=== PATIENT | female | born 1985 | race Caucasian/White ===

== ENCOUNTER 2021-01-24 13:45 | Emergency (ER) | payer OTHER ==
[2021-01-24] MEDS ORDERED: Sodium Chloride 0.9% 1,000 ML IV ONE (15:35)
--- NOTE | 2021-01-24 15:52 | PCM.SN.2 ---
- Free Text/Narrative Note: ED none 1547 sinus rhythm heart rate [address] elevation in inferior leads and laterally consistent with early repole no prior for comparison impression normal EKG
--- NOTE | 2021-01-24 17:16 | PCM.SN.2 ---
- Free Text/Narrative Note: EG done at 1547 shows a sinus rhythm with a heart rate 74 and axis 78. URS is normal impression normal EKG
[2021-01-24 17:28] LABS: BLOOD UREA NITROGEN,BUN 16 mg/dL (7.0-18.0); CARBON DIOXIDE,CO2 23.1 mmol/L (21.0-32.0); CHLORIDE,CL 105 mmol/L (98-107); GLUCOSE RANDOM 81 mg/dL (74-106); LIPASE 129 U/L (73-393); POTASSIUM,K 3.5 mmol/L (3.5-5.1); SODIUM,NA 139 mmol/L (136-145)
--- NOTE | 2021-01-24 18:51 | CR ---
INDICATION: Syncope TECHNIQUE: Chest radiograph 1 view COMPARISON: None FINDINGS: Mediastinum: The mediastinum is normal in appearance. The heart silhouette is normal in size and morphology. Lung: There is a 5 mm nodular density in the left midlung zone. No sign of pleural effusion seen. No pneumothorax is identified. Bone and Soft tissue: Unremarkable for age. IMPRESSION: 1. There is a 5 mm nodular density in the left midlung zone. This may represent a granuloma. Comparison with any prior outside imaging is recommended. If these cannot be obtained, follow up chest radiograph in 3 months is warranted to document stability. Dictated by Federico Cheema MD @ 01/24/2021 6:49:14 PM Dictated by: Federico Cheema MD @ 01/24/2021 18:49:16 (Electronically Signed)
--- NOTE | 2021-01-24 18:57 | CT ---
INDICATION: Dizziness and syncope TECHNIQUE: CT head without contrast. COMPARISON: None. FINDINGS: CSF spaces: Within normal limits for age. Brain parenchyma: The lopez-white differentiation is normal. No sign of mass, hemorrhage, or midline shift. Skull base and calvarium: The visualized paranasal sinuses and mastoid air cells demonstrate no acute or significant findings. The visualized orbits are grossly unremarkable. No skull fractures. IMPRESSION: Unremarkable noncontrast head CT. Please note that all CT scans at this facility use dose modulation, iterative reconstruction, and/or weight-based dosing when appropriate to reduce radiation dose to as low as reasonably achievable. Dictated by Clint Ruiz MD @ Jan 24 2021 6:53PM Signed by Dr. Clint Ruiz @ Jan 24 2021 6:55PM
--- NOTE | 2021-01-24 19:23 | EDM.PDOC ---
ED [facility] GENERAL MEDICAL PROBLEM - General Chief Complaint: General Stated Complaint: GENERAL Time Seen by Provider: 01/24/21 13:47 Source of Information: Reports: Patient History Limitations: Reports: No Limitations - History of Present Illness INITIAL COMMENTS - FREE TEXT/NARRATIVE: HISTORY AND PHYSICAL: History of present illness: Patient is a poor historian so HPI is limited to this Patient is a 35-year-old female who presents to the ED today with concern of various multiple complaints that she has a difficult time explaining. Patient first explains that yesterday evening, she had a syncopal event. Patient states that she was lying on the bed and she stood up too quickly to walk to the kitchen to refill her water. Patient states that she woke up with her mother telling her that she was unconscious. Patient states she had one episode of vomiting following the syncopal event yesterday but has not been vomiting since. Patient states that she has felt fine since the syncopal episode. Patient states she went to work today and in the middle of her shift got lightheaded and this is what concerned her to come to the emergency room. Patient states she is concerned because she has been having headaches over the past 1 week that she describes in her left temporal area as sharp and stabbing. Patient states her headache she believes is related to her syncope episode. Patient denies any head trauma or injury. Patient also explains that she has been having low back pain x1 week. Patient states that it feels similar to when she gets her menstrual cycle but states she finished her menstrual cycle 3 days ago and continues to have the low back pain. Patient denies any loss or retention of bowel bladder function or saddle anesthesia. Patient states she has already had Covid 2 months ago. Patient has a history of chronic low back pain but denies any other health history. Denies any other symptoms or concerns. Patient denies fever, chills, chest pain, or cough. Denies neck stiff ness, change in vision. Denies nausea, abdominal pain, diarrhea, constipation, or dysuria. Has not noted any blood in urine or stool. Patient has been eating and drinking appropriately. Review of systems: As per history of present illness and below otherwise all systems reviewed and negative. Past medical history: As per history of present illness and as reviewed below otherwise noncontributory. Surgical history: As per history of present illness and as reviewed below otherwise noncontributory. Social history: See social history for further information Family history: As per history of present illness and as reviewed below otherwise noncontributory. Physical exam: General: Patient is alert, oriented, and in no acute distress. Patient laying comfortably on exam table. Vitals stable and reviewed by me HEENT: Atraumatic, normocephalic, pupils equal and reactive bilaterally, negative for conjunctival pallor or scleral icterus, mucous membranes moist, TMs normal bilaterally, throat clear, neck supple, nontender, trachea midline. No drooling or trismus noted. No meningeal signs. No hot potato voice noted. Lungs: Clear to auscultation, breath sounds equal bilaterally, chest nontender. Heart: S1S2, regular rate and rhythm without overt murmur Abdomen: Soft, nondistended, nontender. Negative for masses or hepatosplenomegaly. Negative for costovertebral tenderness. Pelvis: Stable nontender. Genitourinary: Deferred. Rectal: Deferred. Skin: Intact, warm, dry. No lesions or rashes noted. Extremities/musculoskeletal: No obvious deformity of the complete spine. No step-offs, crepitus, or point tenderness to palpation of the complete spine. Patient has full range of motion of the complete spine without pain or difficulty. Patient does point to her lower sacral area in relation to her "low back pain "but this is nontender on palpation. Patient has full range of motion of bilateral upper and lower extremities without pain or deficit. Otherwise, atraumatic, negative for cords or calf pain. Neurovascular unremarkable. Neuro: Awake, alert, oriented. Cranial nerves II through XII unremarkable. Cerebellum unremarkable. Motor and sensory unremarkable throughout. Exam nonfocal. Notes: On initial exam, patient is vitally stable and well-appearing. She does have difficulty explaining what brings her to the emergency room today so will perform routine lab work including cardiac evaluation for syncopal episode that occurred yesterday. Patient does note her biggest concern is her headache. We will also obtain a head CT scan as patient has had a new onset headache that she believes to be causing her syncopal events. See Dr. Mckeon dictation for specific EKG interpretation. No STEMI or acute changes. CBC unremarkable. Lipase normal. CMP shows mild increase in creat at 1.2 and mild elevation of ALT 77 which is non specific; otherwise unremarkable. Troponin is negative. Head CT shows unremarkable head CT. CXR shows a 5mm nodular density in the left midlung zone. This may represent a granuloma. Recommend 3 month chest radiograph to document stability. Otherwise, unremarkable CXR. All incidental findings of imaging today discussed with patient and the importance for follow up with her PCP. UA shows 2-3 wbc w positive leuk esterase. Although patient does not describe any urinary frequency or burning with urination, she is having some low back discomfort which could be associated with possible early urinary tract infection. Will provide patient with Macrobid and instruction for close follow- up with her primary care provider. Upon reevaluation of patient, she remains comfortable throughout stay in ED and vitally stable. Signs and symptoms that were prompt return to the ED thoroughly discussed with patient. Discussed importance for follow-up with her primary care provider. Voices understanding and is agreeable to plan of care. Denies any further questions or concerns at this time. Diagnostics: EKG, CBC, CMP, UA, urine hCG, chest x-ray, troponin, head CT, orthostatic vitals Therapeutics: NS Prescription: Diclofenac, Flexeril, Macrobid Impression: Syncope Headache Urinary tract infection Acute on chronic low back pain Plan: 1. Rest, ice and or heat, elevate the affected area. You can apply ice of heat 15 minutes on, 15 minutes off. 2. Tylenol as directed for pain management or discomfort. Take medication as prescribed. Do not take any additional NSAIDs along with diclofenac such as ibuprofen, aspirin, Aleve, naproxen. Caution with using Flexeril outside of the home. Do not operate any heavy equipment or machinery while taking Flexeril as this may cause drowsiness. 3. Follow up with the primary care provider as discussed. Return to the ED as needed and as discussed. Definitive disposition and diagnosis as appropriate pending reevaluation and review of above. - Related Data Allergies Allergy/AdvReac Type Severity Reaction Status Date / Time acetaminophen [From Vicodin] Allergy Other Verified 01/24/21 17:36 hydrocodone [From Vicodin] Allergy Other Verified 01/24/21 17:36 Iodinated Contrast Media Allergy Other Verified 01/24/21 17:36 Home Meds: Home Meds Cyclobenzaprine [Flexeril] 10 mg PO TID PRN #9 tab 01/24/21 [Rx] Diclofenac Sodium [Voltaren] 75 mg PO BIDMEALS PRN #15 tab.cr 01/24/21 [Rx] Nitrofurantoin Monohyd/M-Cryst [Macrobid 100 mg Capsule] 100 mg PO BID 5 Days #10 capsule 01/24/21 [Rx] buPROPion [Wellbutrin] 300 mg PO DAILY 01/24/21 [History] Past Medical History - Past Health History Medical/Surgical History: Denies Medical/Surgical History Musculoskeletal History: Reports: Back Pain, Chronic - Infectious Disease History Infectious Disease History: Reports: None Social & Family History - Tobacco Use Tobacco Use Status *Q: Never Tobacco User - Caffeine Use Caffeine Use: Reports: None - Recreational Drug Use Recreational Drug Use: No ED ROS GENERAL - Review of Systems Review Of Systems: Comprehensive ROS is negative, except as noted in HPI. ED EXAM, GENERAL - Physical Exam Exam: See Below (see dictation) Course - Vital Signs Last Recorded V/S: Last Vital Signs Temp 96.9 F 01/24/21 19:27 Pulse 86 01/24/21 19:27 Resp 18 01/24/21 19:27 BP 115/71 01/24/21 19:27 Pulse Ox 99 01/24/21 19:27 Orthostatic Blood Pressure [ 120/69 Standing] Orthostatic Blood Pressure [ 119/77 Sitting] Orthostatic Blood Pressure [ 111/66 Supine] - Orders/Labs/Meds Orders: Active Orders 24 hr Category Date Time Status EKG Documentation Completion [RC] STAT Care 01/24/21 15:35 Active Orthostatic Vital Signs [RC] ASDIRECTED Care 01/24/21 15:36 Active CULTURE URINE [RM] Stat Lab 01/24/21 14:50 Received Labs: Laboratory Tests 01/24/21 01/24/21 01/24/21 Range/Units 14:50 14:50 16:55 WBC 6.49 (4.0-11.0) K/uL RBC 4.53 (4.30-5.90) M/uL Hgb 13.1 (12.0-16.0) g/dL Hct 40.1 (36.0-46.0) % MCV 88.5 (80.0-98.0) fL MCH 28.9 (27.0-32.0) pg MCHC 32.7 (31.0-37.0) g/dL RDW Std Deviation 44.2 (28.0-62.0) fl RDW Coeff of Carlos 14 (11.0-15.0) % Plt Count 322 (150-400) K/uL MPV 10.40 (7.40-12.00) fL Neut % (Auto) 49.9 (48.0-80.0) % Lymph % (Auto) 39.9 (16.0-40.0) % Green % (Auto) 8.3 (0.0-15.0) % Eos % (Auto) 1.1 (0.0-7.0) % Baso % (Auto) 0.8 (0.0-1.5) % Neut # (Auto) 3.2 (1.4-5.7) K/uL Lymph # (Auto) 2.6 H (0.6-2.4) K/uL Green # (Auto) 0.5 (0.0-0.8) K/uL Eos # (Auto) 0.1 (0.0-0.7) K/uL Baso # (Auto) 0.1 (0.0-0.1) K/uL Nucleated RBC % 0.0 /100WBC Nucleated RBCs # 0 K/uL Sodium (136-145) mmol/L Potassium (3.5-5.1) mmol/L Chloride (98-107) mmol/L Carbon Dioxide (21.0-32.0) mmol/L BUN (7.0-18.0) mg/dL Creatinine (0.6-1.0) mg/dL Est Cr Clr Drug Dosing Estimated GFR (MDRD) ml/min Glucose (74-106) mg/dL Calcium (8.5-10.1) mg/dL Total Bilirubin (0.2-1.0) mg/dL AST (15-37) IU/L ALT (14-63) IU/L Alkaline Phosphatase (46-116) U/L Troponin I (0.000-0.056) ng/mL Total Protein (6.4-8.2) g/dL Albumin (3.4-5.0) g/dL Globulin (2.6-4.0) g/dL Albumin/Globulin Ratio (0.9-1.6) Lipase (73-393) U/L Urine Color YELLOW Urine Appearance CLEAR Urine pH 6.0 (5.0-8.0) Ur Specific [place] 1.015 (1.001-1.035) Urine Protein NEGATIVE (NEGATIVE) mg/dL Urine Glucose (UA) NEGATIVE (NEGATIVE) mg/dL Urine Ketones NEGATIVE (NEGATIVE) mg/dL Urine Occult Blood NEGATIVE (NEGATIVE) Urine Nitrite NEGATIVE (NEGATIVE) Urine Bilirubin NEGATIVE (NEGATIVE) Urine Urobilinogen 0.2 (<2.0) EU/dL Ur Leukocyte Esterase TRACE H (NEGATIVE) Urine RBC 0-1 (0-2/HPF) Urine WBC 2-3 (0-5/HPF) Ur Epithelial Cells OCCASIONAL (NONE-FEW) Amorphous Sediment FEW (NEGATIVE) Urine Bacteria FEW (NEGATIVE) Urine Mucus RARE (NONE-MOD) Urine HCG, Qual NEGATIVE (NEGATIVE) 01/24/21 Range/Units 16:55 WBC (4.0-11.0) K/uL RBC (4.30-5.90) M/uL Hgb (12.0-16.0) g/dL Hct (36.0-46.0) % MCV (80.0-98.0) fL MCH (27.0-32.0) pg MCHC (31.0-37.0) g/dL RDW Std Deviation (28.0-62.0) fl RDW Coeff of Carlos (11.0-15.0) % Plt Count (150-400) K/uL MPV (7.40-12.00) fL Neut % (Auto) (48.0-80.0) % Lymph % (Auto) (16.0-40.0) % Green % (Auto) (0.0-15.0) % Eos % (Auto) (0.0-7.0) % Baso % (Auto) (0.0-1.5) % Neut # (Auto) (1.4-5.7) K/uL Lymph # (Auto) (0.6-2.4) K/uL Green # (Auto) (0.0-0.8) K/uL Eos # (Auto) (0.0-0.7) K/uL Baso # (Auto) (0.0-0.1) K/uL Nucleated RBC % /100WBC Nucleated RBCs # K/uL Sodium 139 (136-145) mmol/L Potassium 3.5 (3.5-5.1) mmol/L Chloride 105 (98-107) mmol/L Carbon Dioxide 23.1 (21.0-32.0) mmol/L BUN 16 (7.0-18.0) mg/dL Creatinine 1.2 H (0.6-1.0) mg/dL Est Cr Clr Drug Dosing TNP Estimated GFR (MDRD) 51.4 ml/min Glucose 81 (74-106) mg/dL Calcium 8.7 (8.5-10.1) mg/dL Total Bilirubin 0.6 (0.2-1.0) mg/dL AST 27 (15-37) IU/L ALT 77 H (14-63) IU/L Alkaline Phosphatase 65 (46-116) U/L Troponin I < 0.050 (0.000-0.056) ng/mL Total Protein 8.0 (6.4-8.2) g/dL Albumin 3.6 (3.4-5.0) g/dL Globulin 4.4 H (2.6-4.0) g/dL Albumin/Globulin Ratio 0.8 L (0.9-1.6) Lipase 129 (73-393) U/L Urine Color Urine Appearance Urine pH (5.0-8.0) Ur Specific [place] (1.001-1.035) Urine Protein (NEGATIVE) mg/dL Urine Glucose (UA) (NEGATIVE) mg/dL Urine Ketones (NEGATIVE) mg/dL Urine Occult Blood (NEGATIVE) Urine Nitrite (NEGATIVE) Urine Bilirubin (NEGATIVE) Urine Urobilinogen (<2.0) EU/dL Ur Leukocyte Esterase (NEGATIVE) Urine RBC (0-2/HPF) Urine WBC (0-5/HPF) Ur Epithelial Cells (NONE-FEW) Amorphous Sediment (NEGATIVE) Urine Bacteria (NEGATIVE) Urine Mucus (NONE-MOD) Urine HCG, Qual (NEGATIVE) Meds: Medications Discontinued Medications Generic Name Dose Route Start Last Admin Trade Name Freq PRN Reason Stop Dose Admin Sodium Chloride 1,000 mls @ 999 mls/hr 01/24/21 15:35 01/24/21 16:43 Normal Saline IV 01/24/21 16:35 999 mls/hr BOLUS ONE Administration Departure - Departure Time of Disposition: 19:22 Disposition: Home, Self-Care 01 Clinical Impression: Acute exacerbation of chronic low back pain Headache Qualifiers: Headache type: unspecified Headache chronicity pattern: unspecified pattern Intractability: not intractable Qualified Code(s): R51.9 - Headache, unspecified Urinary tract infection Qualifiers: Urinary tract infection type: site unspecified Hematuria presence: without hematuria Qualified Code(s): N39.0 - Urinary tract infection, site not specified Syncope Qualifiers: Syncope type: unspecified Qualified Code(s): R55 - Syncope and collapse - Discharge Information Prescriptions: Cyclobenzaprine [Flexeril] 10 mg PO TID PRN #9 tab PRN Reason: Spasms Nitrofurantoin Monohyd/M-Cryst [Macrobid 100 mg Capsule] 100 mg PO BID 5 Days #10 capsule Diclofenac Sodium [Voltaren] 75 mg PO BIDMEALS PRN #15 tab.cr PRN Reason: Pain Instructions: Migraine Headache, [id number] Referrals: PCP,None [Primary Care Provider] - Forms: ED Department Discharge Additional Instructions: The following information is given to patients seen in the emergency department who are being discharged to home. This information is to outline your options for follow-up care. We provide all patients seen in our emergency department with a follow-up referral. The need for follow-up, as well as the timing and circumstances, are variable depending upon the specifics of your emergency department visit. If you don't have a primary care physician on staff, we will provide you with a referral. We always advise you to contact your personal physician following an emergency department visit to inform them of the circumstance of the visit and for follow-up with them and/or the need for any referrals to a consulting specialist. The emergency department will also refer you to a specialist when appropriate. This referral assures that you have the opportunity for follow-up care with a specialist. All of these measure are taken in an effort to provide you with optimal care, which includes your follow-up. Under all circumstances we always encourage you to contact your private physician who remains a resource for coordinating your care. When calling for follow-up care, please make the office aware that this follow-up is from your recent emergency room visit. If for any reason you are refused follow-up, please contact the [facility] Emergency Department at and asked to speak to the emergency department charge nurse. [facility] [address] [place] [address] [facility] [address] [place] [address] 1. Rest, ice and or heat, elevate the affected area. You can apply ice of heat 15 minutes on, 15 minutes off. 2. Tylenol as directed for pain management or discomfort. Take medication as prescribed. Do not take any additional NSAIDs along with diclofenac such as ibuprofen, aspirin, Aleve, naproxen. Caution with using Flexeril outside of the home. Do not operate any heavy equipment or machinery while taking Flexeril as this may cause drowsiness. 3. Follow up with the primary care provider as discussed. Return to the ED as needed and as discussed. Sepsis Event Note (ED) - Evaluation Sepsis Screening Result: No Definite Risk - Focused Exam Vital Signs: Vital Signs Temp Pulse Resp BP Pulse Ox 01/24/21 19:27 96.9 F 86 18 115/71 99 01/24/21 18:50 80 18 122/75 100 01/24/21 14:45 98 F 100 18 129/98 H 95 - My Orders Last 24 Hours: My Active Orders 01/24/21 14:50 CULTURE URINE [RM] Stat 01/24/21 15:35 EKG Documentation Completion [RC] STAT 01/24/21 15:36 Orthostatic Vital Signs [RC] ASDIRECTED - Assessment/Plan Last 24 Hours: My Active Orders 01/24/21 14:50 CULTURE URINE [RM] Stat 01/24/21 15:35 EKG Documentation Completion [RC] STAT 01/24/21 15:36 Orthostatic Vital Signs [RC] ASDIRECTED
== END 2021-01-24 19:30 | disposition home or self-care (01) ==
LOC: MW.ED 13:45
DX: R55 Syncope and collapse (principal); R51.9 Headache, unspecified; N39.0 Urinary tract infection, site not specified; G89.29 Other chronic pain; M54.5 Low back pain; Z88.6 Allergy status to analgesic agent; Z88.5 Allergy status to narcotic agent; Z91.041 Radiographic dye allergy status
CPT/HCPCS: 70450; 71045; 80053; 81001; 81025; 83690; 84484; 85025; 93005; 99284; J7030; 87086; 93010

== ENCOUNTER 2023-06-21 06:34 | Day surgery (SDC) | payer BC, OTHER ==
[~2023-06-21 06:34] MED LIST: Albuterol 0.083% 2.5 MG/3 ML Neb Soln NEB PRN; HYDROmorphone 1 MG/ML Syringe IVPUSH PRN; Lactated Ringers 1,000 ML IV SCH; Metoclopramide 10 MG/2 ML SDV IVPUSH PRN; Morphine 2 MG/ML SYRINGE IVPUSH PRN; Naloxone 0.4 MG/ML SDV IVPUSH PRN; Ondansetron 4 MG/2 ML SDV IVPUSH PRN; Scopolamine 1.5 MG Transdermal Patch TOP ONE; droPERidol 5 MG/2 ML SDV IVPUSH PRN; fentaNYL 50 MCG/ML SDV IVPUSH PRN
[2023-06-21] MEDS ORDERED: Scopolamine 1.5 MG Transdermal Patch ONE (06:47)
[2023-06-21 07:09] LABS: HEMATOCRIT 41.8 % (36.0-46.0); HEMOGLOBIN 13.9 g/dL (12.0-16.0); MEAN CORPUSCULAR HEMOGLOBIN 29.1 pg (27.0-32.0); MEAN CORPUSCULAR HGB CONC 33.3 g/dL (31.0-37.0); MEAN CORPUSCULAR VOLUME 87.6 fL (80.0-98.0); MEAN PLATELET VOLUME 11.1 fL (7.40-12.00); RED BLOOD CELL COUNT 4.77 M/uL (4.30-5.90); WHITE BLOOD CELL COUNT,WBC 4.56 K/uL (4.0-11.0)
[2023-06-21] MEDS ORDERED: Lidocaine 2% 100 MG/5 ML Syringe ONE (07:15)
[2023-06-21] MEDS ORDERED: propofoL 50 ML ONE ×2 (07:15→07:31)
[2023-06-21] MEDS ORDERED: Ketorolac 30 MG/ML SDV ONE ×2 (07:15→07:16)
[2023-06-21] MEDS ORDERED: Metoclopramide 10 MG/2 ML SDV ONE (07:15)
[2023-06-21] MEDS ORDERED: Ondansetron 4 MG/2 ML SDV ONE (07:15)
[2023-06-21] MEDS ORDERED: Dexmedetomidine 200 MCG/2 ML SDV ONE (07:16)
[2023-06-21] MEDS ORDERED: Iodine/Potassium Iodide 60 ML Bottle ONE (07:18)
[2023-06-21] MEDS ORDERED: Lidocaine 1% 20 ML MDV ONE (07:18)
[2023-06-21] MEDS ORDERED: Lidocaine 1% with EPINEPHrine 1:100,000 50 ML MDV ONE (07:20)
[2023-06-21] MEDS ORDERED: fentaNYL 100 MCG/2 ML SDV ONE (07:21)
[2023-06-21] MEDS ORDERED: Morphine 10 MG/ML SDV ONE (08:06)
[2023-06-21] MEDS ORDERED: Magnesium Sulfate (4.06 MEQ/ML) 5 GM/10 ML SDV ONE (12:07)
== END 2023-06-21 10:10 | disposition home or self-care (01) ==
LOC: MW.SDS 06:34
PROVIDERS: ATTEND Obstetrics & Gynecology
DX: N87.1 Moderate cervical dysplasia (principal); F32.A Depression, unspecified; G89.29 Other chronic pain; M54.9 Dorsalgia, unspecified; E66.9 Obesity, unspecified; Z68.36 Body mass index [BMI] 36.0-36.9, adult; F17.210 Nicotine dependence, cigarettes, uncomplicated; Z79.899 Other long term (current) drug therapy; Z88.1 Allergy status to other antibiotic agents; Z91.041 Radiographic dye allergy status; Z88.5 Allergy status to narcotic agent
CPT/HCPCS: 36415; 57522; 84703; 85027; A9270; J0131; J1885; J2270; J2405; J2704; J2765; J3010; J3475; J7120; 00940; J3490

== ENCOUNTER 2023-07-20 02:59 | Emergency (ER) | payer BC ==
[2023-07-20] MEDS ORDERED: Ketorolac 30 MG/ML SDV IM ONE (03:38)
== END 2023-07-20 04:18 | disposition home or self-care (01) ==
LOC: MW.ED 02:59
DX: M54.50 Low back pain, unspecified (principal); E66.9 Obesity, unspecified; Z79.899 Other long term (current) drug therapy; Z91.041 Radiographic dye allergy status; Z88.8 Allergy status to other drugs, medicaments and biological substances; Z68.34 Body mass index [BMI] 34.0-34.9, adult
CPT/HCPCS: 96372; 99282; J1885; 99283

== ENCOUNTER 2024-07-11 22:24 | Emergency (ER) | payer OTHER, BC ==
[2024-07-12] MEDS: Lidocaine 4% 1 each Patch TOP ONE (00:14)
[2024-07-12] MEDS: Acetaminophen 500 MG Tab PO ONE (00:15)
== END 2024-07-12 01:02 | disposition home or self-care (01) ==
LOC: MW.ED 22:24
DX: S06.0X0A Concussion without loss of consciousness, initial encounter (principal); E66.9 Obesity, unspecified; Z88.8 Allergy status to other drugs, medicaments and biological substances; Z88.5 Allergy status to narcotic agent; Z91.041 Radiographic dye allergy status; W18.30XA Fall on same level, unspecified, initial encounter; Z75.8 Other problems related to medical facilities and other health care
CPT/HCPCS: 70450; 72125; 99284; A9270